=== PATIENT | female | born 1985 | race African-American/Black ===

== ENCOUNTER 2020-02-22 19:47 | Emergency (ER) | payer MEDICAID ==
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
[2020-02-22 21:32] LABS: ABSOLUTE BASOPHILS # (AUTO) 0.1 10^3/uL (0.0-0.2); ABSOLUTE LYMPHOCYTES (AUTO) 2.6 10^3/uL (0.5-4.7); ABSOLUTE MONOCYTES (AUTO) 0.8 10^3/uL (0.1-1.4); ABSOLUTE NEUT (AUTO) 7.1 10^3/uL (1.7-8.2); APPEARANCE,URINE CLEAR; BASOPHILS % (AUTO) 0.5 % (0-2); BILIRUBIN,URINE NEGATIVE (NEGATIVE); COLOR,URINE YELLOW; EOSINOPHILS % (AUTO) 0.4 % (0-6); GLUCOSE, URINE NEGATIVE (NEGATIVE); HEMATOCRIT 38.9 % (36.0-47.0); HEMOGLOBIN 12.2 g/dL (12.0-15.5); KETONES,URINE NEGATIVE (NEGATIVE); LEUKOCYTE ESTERASE,URINE NEGATIVE (NEGATIVE); LYMPHOCYTES % (AUTO) 24.4 % (13-45); MEAN CORPUSCULAR HEMOGLOBIN 20.9 pg (27.0-33.4); MEAN CORPUSCULAR HGB CONC 31.5 g/dL (32.0-36.0); MEAN CORPUSCULAR VOLUME 67 fl (80-97); MONOCYTES % (AUTO) 7.9 % (3-13); NITRITE,URINE NEGATIVE (NEGATIVE); PLATELET COUNT 244 10^3/uL (150-450); PROTEIN,URINE NEGATIVE (NEGATIVE); RED BLOOD COUNT 5.85 10^6/uL (3.72-5.28); RED CELL DISTRIBUTION WIDTH 16.1 % (11.5-14.0); SEGMENTED NEUTROPHILS % (AUTO) 66.8 % (42-78); TOTAL CELLS COUNTED % (AUTO) 100 %; URINE SPECIFIC GRAVITY 1.018; UROBILINOGEN,URINE NEGATIVE mg/dL (<2.0); WHITE BLOOD COUNT 10.6 10^3/uL (4.0-10.5)
--- NOTE | 2020-02-22 21:39 | RADIOLOGY REPORT (SQ) ---
EXAM DESCRIPTION: XR CHEST 1 VIEW COMPLETED DATE/TME: 02/22/2020 20:58 CLINICAL HISTORY: 34 years, Female, shortness of breath COMPARISON: None. NUMBER OF VIEWS: One TECHNIQUE: Single frontal view of the chest was obtained portably LIMITATIONS: None. FINDINGS: Cardiac and mediastinal contours are normal. Hazy bibasilar airspace disease is noted. Lungs are otherwise clear. No pleural effusion or pneumothorax. IMPRESSION: Hazy bibasilar airspace disease. Consider atelectasis or pneumonia to include viral pneumonitis. copyright 2010 [employer]- All Rights Reserved
[2020-02-22 21:49] LABS: ALBUMIN 4.2 g/dL (3.5-5.0); ALKALINE PHOSPHATASE 71 U/L (38-126); ANION GAP 6 (5-19); ASPARTATE AMINO TRANSFERASE 17 U/L (14-36); BILIRUBIN,TOTAL 0.6 mg/dL (0.2-1.3); BLOOD UREA NITROGEN 14 mg/dL (7-20); CALCIUM 9.5 mg/dL (8.4-10.2); CARBON DIOXIDE 26 mmol/L (22-30); CHLORIDE 104 mmol/L (98-107); GLUCOSE 92 mg/dL (75-110); TOTAL PROTEIN 7.8 g/dL (6.3-8.2)
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
--- NOTE | 2020-02-22 23:01 | RADIOLOGY REPORT (SQ) ---
EXAM DESCRIPTION: Noncontrast CT head CLINICAL HISTORY: 34 years Female headache, dizzy, hypertension TECHNIQUE: Noncontrast CT head. All CT scans at this facility use dose modulation, iterative reconstruction, and/or weight based dosing when appropriate to reduce radiation dose to as low as reasonably achievable. COMPARISON: None. FINDINGS: Farias matter, white matter, ventricles, and cisterns are within normal limits. No acute hemorrhage or mass effect. Visualized portions of paranasal sinuses and mastoids are clear. Visualized portions of the calvarium are within normal limits. IMPRESSION: 1. No acute intracranial findings.
[2020-02-23] MEDS ORDERED: AZITHROMYCIN 250 MG TABLET PO ONE (00:01)
[2020-02-23 01:06] VITALS: BP 136/66
--- NOTE | 2020-02-23 15:00 | EKG REPORT ---
SEVERITY:- OTHERWISE NORMAL ECG - SINUS ARRHYTHMIA, RATE 47-67 : Confirmed by: Juan Carlos De La Torre MD 23-Feb-2020 15:00:00
== END 2020-02-23 01:06 | disposition home or self-care (01) ==
LOC: ER 19:47
DX: I10 Essential (primary) hypertension (principal); J18.9 Pneumonia, unspecified organism; R00.1 Bradycardia, unspecified; R53.1 Weakness; R06.02 Shortness of breath; R51 Headache; M25.512 Pain in left shoulder; E66.9 Obesity, unspecified; Z20.828 Contact with and (suspected) exposure to other viral communicable diseases
CPT/HCPCS: 93005; 99285; 36415; 84703; 85025; 87635; 80053; 81001; 84484; 85379; 71045; 70450; 93010; Q0144; C9803

== ENCOUNTER → 2020-04-17 | Outpatient (CLI) | payer MEDICAID ==
[2020-04-17 12:31] VITALS: BP 143/85
--- NOTE | 2020-04-17 12:31 | ER RDC ASSESSMENT REPORT ---
Intake - In the Last 14 days Have you traveled outside [place]?: No Have you been in close contact with someone CONFIRMED: No Worked in Healthcare?: No - Symptoms Subjective Fever([place] feverish): No Chills: No Muscule Aches: No Runny Nose: No Sore Throat: No Cough (New or worsening chronic cough): No Shortness of breath: No Nausea or Vomiting: No Headache: No Abdominal Pain: No Diarrhea(3 or more loose stools in last 24 hours): No - Do you have any of the following Chronic lung disease: Asthma or emphysema or COPD: No Cystic Fibrosis: No Diabetes: No High Blood Pressure: Yes Cardiovascular Disease: Yes Chronic Kidney Disease: No Chronic Liver Disease: No Chronic blood disorder like Sickle Cell Disease: Yes Weak immune system due to disease or medication: No Neurologic condition that limits movement: No Developmental delay - Moderate to Severe: No Recent (within past 2 weeks) or current : No Morbid Obesity (>100 pounds over ideal weight): Yes Obesity Comment: Height 5 feet 9 inches weight 312 pounds. - Objective Temperature: 98.0 F Pulse Rate: 70 Respiratory Rate: 18 Blood Pressure: 143/85 O2 Sat by Pulse Oximetry: 98 Objective: Given above, testing performed: If Testing Performed: Test Specimen Type Sent to General - General Information source: Patient Notes: Patient here at [facility] for cover testing. Patient denies any known positive exposure to COVID and does not have any symptoms. Patient is here out of abundance of caution and has a procedure at [place] pain management planned. To have COVID testing preprocedure. - Related Data Allergies/Adverse Reactions: latex Adverse Reaction (Mild, Verified 02/22/20 22:32) Past Medical History - General Information source: Patient - Social History Smoking Status: Former Smoker - Quit 2 years ago Family History: Reviewed & Not Pertinent Musculoskeletal Medical History: Reports Hx Musculoskeletal Trauma Physical Exam - General General appearance: Appears well, Alert In distress: None Notes: PHYSICAL EXAMINATION: GENERAL: Well-appearing and in no acute distress. HEAD: Atraumatic, normocephalic. EYES: sclera anicteric, conjunctiva are normal. ENT: nares patent. Moist mucous membranes. NECK: Normal range of motion, supple without lymphadenopathy LUNGS: CTAB and equal. No wheezes rales or rhonchi. Respirations even and unlabored lung sounds clear. HEART: Regular rate and rhythm without murmurs ABDOMEN: Soft, nontender, normal bowel sounds, no guarding. EXTREMITIES: Normal range of motion, no pitting edema. No cyanosis. NEUROLOGICAL: Cranial nerves grossly intact. Normal speech. Normal gait. PSYCH: Normal mood, normal affect. SKIN: Warm, Dry, normal turgor, no rashes or lesions noted Diagnostic Results Laboratory Results: Pending COVID test results. Patient provided instructions regarding covid to include: As a person under investigation for Covid 19, the [facility] [place] of Health and Human Services, division of public health advises you to adhere to the following guidance until your test results are reported to you. If your test result is positive, you will receive additional information from your provider and your local health department at that time. Remain at home until you are cleared by the health provider or public health authorities. Keep a log of visitors to your home, notify any visitors to your home of your isolation status. If you plan to move to a new address or leave the [facility], notify the local health department in your County. Call your doctor or seek care if you have an urgent medical need. Before seeking medical care, call ahead to get instructions from the provider before arriving at the medical office clinic or hospital. Notify them that you are being tested for the virus that causes Covid 19 so that arrangements can be made, as necessary, to prevent transmission to others in the healthcare setting. Next, notify the local health department in your county. If a medical emergency arises and you need to call 911, inform the first responders that you are being tested for the virus that causes Covid 19. Next, notify the local health department in your [facility]. Patient Education/Counseling Counseling/Education: Patient presents with upper respiratory symptoms worrisome for possible Covid 19. Patient does not have emergency worring symptoms such as difficulty breathing, shortness of breath, chest pain, pressure, confusion or cyanosis. Patient appears suitable for discharge. Instructed to follow-up with PCP. Patient's vital signs are stable and patient is nontoxic in appearance. Good return precautions have been discussed with patient, patient verbalized understanding and is agreeable with discharge plan of care at this time. [facility] Discharge - Discharge Clinical Impression: Encounter for screening laboratory testing for COVID-19 virus in asymptomatic patient Condition: Stable Disposition: Home; Selfcare
== END ==
LOC: RDC 11:56
PROVIDERS: ATTEND Nurse Practitioner Family
DX: Z03.818 Encounter for observation for suspected exposure to other biological agents ruled out (principal)
CPT/HCPCS: 87635; C9803

== ENCOUNTER → 2020-04-17 | Outpatient (CLI) | payer MEDICAID ==
--- NOTE | 2020-04-17 12:28 | RADIOLOGY REPORT (SQ) ---
EXAM DESCRIPTION: SHOULDER LEFT 2 OR MORE VIEWS IMAGES COMPLETED DATE/TIME: 04/17/2020 11:35 am REASON FOR STUDY: BURSITIS OF LEFT SHOULDER M75.52 BURSITIS OF LEFT SHOULDER COMPARISON: None. NUMBER OF VIEWS: Three views. TECHNIQUE: Internal rotation, external rotation, and Y view images acquired of the left shoulder. LIMITATIONS: None. FINDINGS: MINERALIZATION: Normal. BONES: No acute fracture. No worrisome bone lesions. JOINTS: No dislocation. VISUALIZED LUNGS AND RIBS: No pneumothorax. No rib fracture. SOFT TISSUES: No radiopaque foreign body. OTHER: No other significant finding. IMPRESSION: NEGATIVE STUDY OF THE LEFT SHOULDER. NO RADIOGRAPHIC EVIDENCE OF ACUTE INJURY. TECHNICAL DOCUMENTATION: JOB ID: [id number] 2010 [employer]- All Rights Reserved Reading location - IP/workstation name: [email or web address]
== END ==
LOC: OD 11:19
PROVIDERS: ATTEND Physician Assistant
DX: M75.52 Bursitis of left shoulder (principal)